=== PATIENT | male | born 1975 | race Caucasian/White ===

== ENCOUNTER 2018-10-30 12:09 | Day surgery (SDC) | payer OTHER ==
[~2018-10-30] VITALS: Ht 170.2 cm; Wt 81.1 kg
[~2018-10-30 12:09] MED LIST: None per pt
[2018-10-30] MEDS ORDERED: ONDANSETRON 2MG/ML, 2ML IVPush PRN (12:30)
[2018-10-30] MEDS ORDERED: MEPERIDINE/PF 25MG/0.5ML IVPush PRN (12:30)
[2018-10-30] MEDS ORDERED: MIDAZOLAM 1 MG/ML, 2ML IV PRN (12:30)
[2018-10-30] MEDS ORDERED: OXYcodone 5 MG/5 ML ORAL.SOL UDC PO PRN (12:30)
[2018-10-30] MEDS ORDERED: LABETALOL 5MG/ML, 20ML IV PRN (12:30)
[2018-10-30] MEDS ORDERED: HYDROmorphone 1 MG/ML, 1ML IV PRN (12:30)
[2018-10-30] MEDS ORDERED: LACTATED RINGERS 1,000 ML IV SCH (13:02)
[2018-10-30 13:06] VITALS: BP 151/86
[2018-10-30] MEDS ORDERED: PROPOFOL 10 MG/ML, 20ML ONE (15:41)
[2018-10-30] MEDS ORDERED: DEXAMETHASONE 4 MG/ML, 1ML ONE (15:41)
[2018-10-30] MEDS ORDERED: ONDANSETRON 2MG/ML, 2ML ONE (15:41)
[2018-10-30] MEDS ORDERED: MIDAZOLAM 1 MG/ML, 2ML ONE (15:41)
[2018-10-30] MEDS ORDERED: FENTANYL PF 100 MCG/2ML ONE ×2 (15:42→16:31)
[2018-10-30] MEDS ORDERED: BUPIVACAINE/PF-EPI 0.5% 1:200K INFIL ONE (16:06)
[2018-10-30] MEDS ORDERED: OXYcodone 5 MG/5 ML ORAL.SOL UDC ONE (16:31)
[2018-10-30] MEDS: FENTANYL PF 100 MCG/2ML IV PRN ×2 (16:32→16:38)
== END 2018-10-30 18:00 | disposition home or self-care (01) ==
LOC: OUT 12:09
PROVIDERS: ATTEND Colon & Rectal Surgery
DX: L02.215 Cutaneous abscess of perineum (principal); F17.210 Nicotine dependence, cigarettes, uncomplicated; Z90.49 Acquired absence of other specified parts of digestive tract; Z72.89 Other problems related to lifestyle
CPT/HCPCS: 11423; 88304; C1729; J1100; J2250; J2405; J2704; J3010; J7120